=== PATIENT | female | born 1995 | race Caucasian/White ===

== ENCOUNTER 2021-04-16 09:49 | Emergency (ER) | payer OTHER, SELFPAY ==
[2021-04-16 10:00] VITALS: BP 137/83; PULSE 75; RESP 19; TEMP 36.6; O2SAT 97; BMI 20.2
--- NOTE | 2021-04-16 10:29 | ECG_ITS ---
Test Reason : chest pain Blood Pressure : / mmHG Vent. Rate : 064 BPM Atrial Rate : 064 BPM P-R Int : 136 ms QRS Dur : 080 ms QT Int : 380 ms P-R-T Axes : 072 075 067 degrees QTc Int : 392 ms Normal sinus rhythm Normal ECG No previous ECGs available Referred By: Marco Candelario Electronically Signed By:Otto Patterson
--- NOTE | 2021-04-16 10:42 | ED.GENADULT ---
HPI - General Adult General Chief complaint: General Medical Stated complaint: chest pain Time Seen by Provider: 04/16/21 10:28 Source: patient Mode of arrival: ambulatory Limitations: no limitations History of Present Illness HPI narrative: This is a 25-year-old female past medical history significant for anxiety presents to the emergency department with complaints of right shoulder pain and anterior chest wall pain x2 days. Patient tells me that she has been feeling intermittent pain to her right shoulder, and her anterior chest. She tells me that the chest pain is at times on the left side and other times on the right side. Pain is worse with movement better at rest. She tells me that this has never happened to her before. He tells me she does not think that the right shoulder pain and the chest pain are related, she thinks that they are separate things. Right shoulder pain is worse with movement better at rest also She tells me that she received her COVID shot 1 week ago, and she noted that she had lymph nodes underneath her armpits, and she might have felt 1 in her neck. He tells me she is very anxious and nervous. She has no family history of cardiac disease, no personal history of cardiac disease. She is vaccinated against COVID. No recent URI. Onset (ago): day(s) (2) Location: chest (anterior chest wall ) and right (shoulder ) Radiation: non-radiation Severity: moderate Quality: other (tightness ) Pain Consistency: intermittent Relieving factors: none Exacerbating factors: none Associated symptoms: denies other symptoms Treatments prior to arrival: none Related Data Allergies Allergy/AdvReac Type Severity Reaction Status Date / Time No Known Allergies Allergy Unverified 01/03/20 16:45 [No Known Allergies*] Review of Systems Review of Systems: Constitutional : No Weight loss, No Fever, No Chills, No Fatigue, No Malaise ENT/Mouth : No sore throat, No Rhinorrhea Eyes: No Eye Pain, No Swelling, No Redness Cardiovascular : + Chest Pain, No SOB, No Dyspnea on Exertion, No Orthopnea, No Edema, No Palpitations Respiratory : No Cough, No Sputum, No Wheezing Gastrointestinal : No Nausea, No Vomiting, No Diarrhea, No Constipation, No abdominal Pain, No Hematochezia, No Melena Genitourinary : No Dysuria, No Urinary Frequency, No Hematuria, Musculoskeletal : + joint pain, No Myalgias, No Joint Swelling Skin : No Skin Lesions, No rash Neuro : No Weakness, No Numbness, No Dizziness, No Headache Psych : No Anxiety/Panic, No Depression All other systems reviewed and are negative Yes all other systems are reviewed and are negative [facility] Past Medical History Attestation statement: The following information was validated with the patient. Source: old records reviewed and nursing notes reviewed Social History Social History Advance Directives: No Advance Directives Information Provided: No Patient : No Physical Exam Vital Signs: Vital Signs: Last Vital Signs Temp 98 F 04/16/21 10:00 Pulse 75 04/16/21 10:00 Resp 19 04/16/21 10:00 BP 137/83 04/16/21 10:00 Pulse Ox 97 04/16/21 10:00 BMI result Body Mass Index 20.2 VSS Appearance: Alert.? Oriented X3.? No acute distress.? Patient is extremely anxious, and tearful. Head: Normocephalic, atraumatic, no step-offs or deformities Eyes: Pupils equal, round and reactive to light.? ENT: Pharynx normal.? Neck: Normal inspection.? Neck supple.? CVS: Normal heart rate and rhythm.? Pulses normal.?+ Discomfort with palpation of anterior chest wall, she tells me she feels a soreness/ pain Respiratory: No respiratory distress.? Breath sounds normal.? Abdomen: Soft and nontender.? Skin: Skin warm and dry.? Normal skin color.? Normal skin turgor.? Extremities: No lower extremity edema.? No calf ttp. 5/5 strength to bilateral upper and lower extremities Back: No midline tenderness, no C-spine tenderness, full range of motion, no CVA tenderness bilaterally Neuro: Oriented X 3.? No motor deficit.? No sensory deficit. Course Reevaluation(s) Reevaluation #1: No acute findings on laboratory studies. Negative troponin. EKG with no ischemic changes. Patient is better after Ativan. I suspect that this is anxiety, I do not suspect this is cardiac in origin. I have given patient strict return precautions and have advised her to return with new or worsening symptoms. Comfortable with discharge home Time: 12:10 Medical Decision Making [facility] Narrative Medical decision making narrative: 1045 25 yo F pmhx anxiety presents to the ED w/ complaints of r. shoulder pain and anterior chest wall pain x2 days. Reports getting a COVID shot about a week ago. She denies fevers, chills, nausea, vomiting, shortness of breath. Upon physical examination patient reports pain/ discomfort with palpation of anterior chest wall. Regular rate and rhythm. Lungs are clear. Abdomen soft nontender nondistended. No focal neuro deficits. No calf tenderness upon palpation. 5/5 strength upper and lower extremities. I was unable to palpate any lymphadenopathy no axillary, cervical, occipital pre and postauricular adenopathy. Throughout exam patient is very anxious and tearful. Patient's history and physical examination consistent with anxiety and costochondritis. Unlikely that this is PE or ACS. Patient's PERC score 0- low suspision for PE nor SOB, tachypnea, tachycardia, Or hypoxia. I will obtain basic labs, EKG and troponin. Lab Data Result diagrams: 04/16/21 11:21 04/16/21 11:21 Labs: Lab Results 04/16/21 04/16/21 04/16/21 Range/Units 11:19 11:21 11:21 WBC 9.4 (4.8-10.8) X10*3/uL RBC 4.15 L (4.20-5.50) X10*6/uL Hgb 13.4 (12.0-16.0) g/dl Hct 40.0 (37.0-47.0) % MCV 96.4 (80.0-98.0) fL MCH 32.3 (27.0-33.0) pg MCHC 33.5 (31.0-35.0) g/dl RDW 11.9 (11.0-16.0) % Plt Count 326 (160-400) X10*3/uL MPV 9.1 L (9.4-12.3) fL Immature Gran % (Auto) 0.2 (0.0-0.4) % Neut % (Auto) 81.1 H (45-73) % Lymph % (Auto) 13.4 L (20-40) % [place] % (Auto) 5.0 (2-11) % Eos % (Auto) 0.1 (0-4) % Baso % (Auto) 0.2 (0-2) % Lymph # (Auto) 1.3 (1.2-4.9) X10*3/uL [place] # (Auto) 0.5 (0.1-1.2) X10*3/uL Eos # (Auto) 0.0 (0.0-0.4) X10*3/uL Baso # (Auto) 0.0 (0.0-0.2) X10*3/uL Abs Immat Gran (auto) 0.02 (0.00-0.03) X10*3/uL Absolute Neuts (auto) 7.6 (2.0-8.3) x10*3/uL Absolute Nucleated RBC 0.000 (0.0-0.012) X10*3/uL Nucleated RBC % (auto) 0.0 (0.0-0.2) /100WBC Sodium 139 (135-145) mmol/L Potassium 4.2 (3.3-5.1) mmol/L Chloride 108 (96-108) mmol/L Carbon Dioxide 24 (22-29) mmol/L Anion Gap 11 L (12-20) BUN 8 L (9-16) mg/dL Creatinine 0.79 (0.5-1.4) mg/dL Estim Creat Clear Calc 72.9 Estimated GFR > 60 Random Glucose 107 (60-115) mg/dL Calcium 9.7 (8.4-10.2) mg/dL Total Bilirubin 0.7 (0.0-1.0) mg/dL AST 17 (5-31) U/L ALT 13 (0-31) U/L Alkaline Phosphatase 48 (39-117) U/L Troponin I High Sens (<3.5-17.0) ng/L Total Protein 7.2 (6.5-8.0) g/dL Albumin 4.6 (3.5-5.0) g/dL COVID-19 ([place]) Negative (Negative) COVID-19 Clin Com See Note 04/16/21 Range/Units 11:21 WBC (4.8-10.8) X10*3/uL RBC (4.20-5.50) X10*6/uL Hgb (12.0-16.0) g/dl Hct (37.0-47.0) % MCV (80.0-98.0) fL MCH (27.0-33.0) pg MCHC (31.0-35.0) g/dl RDW (11.0-16.0) % Plt Count (160-400) X10*3/uL MPV (9.4-12.3) fL Immature Gran % (Auto) (0.0-0.4) % Neut % (Auto) (45-73) % Lymph % (Auto) (20-40) % [place] % (Auto) (2-11) % Eos % (Auto) (0-4) % Baso % (Auto) (0-2) % Lymph # (Auto) (1.2-4.9) X10*3/uL [place] # (Auto) (0.1-1.2) X10*3/uL Eos # (Auto) (0.0-0.4) X10*3/uL Baso # (Auto) (0.0-0.2) X10*3/uL Abs Immat Gran (auto) (0.00-0.03) X10*3/uL Absolute Neuts (auto) (2.0-8.3) x10*3/uL Absolute Nucleated RBC (0.0-0.012) X10*3/uL Nucleated RBC % (auto) (0.0-0.2) /100WBC Sodium (135-145) mmol/L Potassium (3.3-5.1) mmol/L Chloride (96-108) mmol/L Carbon Dioxide (22-29) mmol/L Anion Gap (12-20) BUN (9-16) mg/dL Creatinine (0.5-1.4) mg/dL Estim Creat Clear Calc Estimated GFR Random Glucose (60-115) mg/dL Calcium (8.4-10.2) mg/dL Total Bilirubin (0.0-1.0) mg/dL AST (5-31) U/L ALT (0-31) U/L Alkaline Phosphatase (39-117) U/L Troponin I High Sens < 3.5 (<3.5-17.0) ng/L Total Protein (6.5-8.0) g/dL Albumin (3.5-5.0) g/dL COVID-19 ([place]) (Negative) COVID-19 Clin Com ECG Data Attestation: I personally reviewed and interpreted this ECG as follows: Prior ECG tracings: not available for review Interpretation: Ventricular rate of 64, [place] normal, QRS normal, QT / QTC normal. EKG shows normal sinus rhythm, no ST elevations or inversions. No acute ischemia. No previous to compare with. Critical Care Time Critical Care Time Critical Care Time: No Discharge Plan Discharge Clinical Impression: Costochondritis, Anxiety Patient Disposition: Home, Self-Care Instructions: Costochondritis (ED), Anxiety (ED) Additional Instructions: Take your medications as prescribed. If you were prescribed antibiotics today, it is important that you take your medication to their entirety, do not skip any doses, do not finish them early. Follow-up with your primary care provider this week. Return to the emergency department with new or worsening symptoms. In case of emergency call 911 Referrals: Kristen Mora MD [Primary Care Provider] - 2 days Stand Alone Forms: Work/School Release
[2021-04-16] MEDS: LORazepam 0.5 MG TABLET PO (10:58)
--- NOTE | 2021-04-16 10:59 | PC.NURSE ---
Refusing to have labs drawn until anti-anxiety medications kick in . Just medicated with Ativan PO. Will re-attempt lab draw shortly. Pt is otherwise cooperative and agrees to care plan. Pt states I know I'm gonna pass out. It's me, not you guys. I'm just anxious . MD aware.
[2021-04-16 11:27] LABS: MANUAL DIFF FLAG NO
[2021-04-16 11:28] LABS: Basophils Percent Auto 0.2 % (0-2); Eosinophils Percent Auto 0.1 % (0-4); Hemoglobin 13.4 g/dl (12.0-16.0); Imm Gran Abs Auto 0.02 X10*3/uL (0.00-0.03); Imm Gran Pct Auto 0.2 % (0.0-0.4); Lymphocytes Absolute Auto 1.3 X10*3/uL (1.2-4.9); Lymphocytes Percent Auto 13.4 % (20-40); Mean Corpuscular HGB Conc 33.5 g/dl (31.0-35.0); Mean Corpuscular Hemoglobin 32.3 pg (27.0-33.0); Mean Corpuscular Volume 96.4 fL (80.0-98.0); Mean Platelet Volume 9.1 fL (9.4-12.3); Monocytes Absolute Auto 0.5 X10*3/uL (0.1-1.2); Neutrophils Absolute Auto 7.6 x10*3/uL (2.0-8.3); Neutrophils Percent Auto 81.1 % (45-73); Platelet Count 326 X10*3/uL (160-400); Red Blood Count 4.15 X10*6/uL (4.20-5.50); Red Cell Distribution Width 11.9 % (11.0-16.0); White Blood Count 9.4 X10*3/uL (4.8-10.8)
[2021-04-16 11:42] LABS: Alanine Aminotransferase 13 U/L (0-31); Albumin Level 4.6 g/dL (3.5-5.0); Alkaline Phosphatase 48 U/L (39-117); Anion Gap 11 (12-20); Aspartate Amino Transferase 17 U/L (5-31); Bilirubin Total 0.7 mg/dL (0.0-1.0); Blood Urea Nitrogen 8 mg/dL (9-16); Calcium 9.7 mg/dL (8.4-10.2); Carbon Dioxide 24 mmol/L (22-29); Chloride 108 mmol/L (96-108); Creatinine Clr Calc Pharmacy 72.9; Estimated Glomerular Filt Rate > 60; Glucose Random 107 mg/dL (60-115); Potassium 4.2 mmol/L (3.3-5.1); Sodium 139 mmol/L (135-145); Total Protein 7.2 g/dL (6.5-8.0)
[2021-04-16 11:44] LABS: COVID-19 Test Negative (Negative)
[2021-04-16 11:48] LABS: Troponin-I High Sensitivity < 3.5 ng/L (<3.5-17.0)
== END 2021-04-16 12:46 | disposition home or self-care (01) ==
PROVIDERS: Physician Assistant; Emergency Provider Emergency Medicine; PCP Family Medicine
DX: M94.0 Chondrocostal junction syndrome [Tietze] (principal); R07.9 Chest pain, unspecified; F41.1 Generalized anxiety disorder; F43.0 Acute stress reaction; Z20.822 Contact with and (suspected) exposure to COVID-19; Z79.899 Other long term (current) drug therapy
CPT/HCPCS: 36415; 80053; 84484; 85025; 87635; 93005; 99283; 99284

== ENCOUNTER 2024-03-14 13:20 | Emergency (ER) | payer MEDICAID, SELFPAY ==
[2024-03-14 13:40] VITALS: BP 118/89; PULSE 123; RESP 16; TEMP 36.8; O2SAT 97; BMI 19.4
--- NOTE | 2024-03-14 13:40 | ED_ITS ---
HPI - General Adult General Chief complaint: GI Bleed Stated complaint: blood in stools Time Seen by Provider: 03/14/24 18:38 Source: patient, RN notes reviewed and old records reviewed Mode of arrival: ambulatory Limitations: no limitations History of Present Illness ED Provider: ERIN CASTAÑEDA PA-C HPI narrative: 28 year old female with pmhx significant for ulcerative colitis (on mesalamine suppositories) and internal hemorrhoids presents to the ED today for evaluation of one episode of blood streaks in her stool this morning. Admits to history of internal hemorrhoids with painless bleeding. Reports this feels similar. also endorses some epigastric abdominal discomfort yesterday which has since resolved. reports that felt more like her acid reflux. denies any other abdominal pain. denies N/V/D, no contipation/ straining, flank pain, dysuria, hematuria. Denies recent peptobismol use or iron supplementation. Denies fatigue, chest pain, sob. Patient also endorses recent increased stressors at home. States she was very anxious. She has Ativan at home to take on a p.r.n. basis. She did not take any today. She is extremely anxious about this situation and about the possibility of staying in the hospital. Denies etoh consumption. Denies SI/HI. Related Data Previous Rx's ?Medication ?Instructions ?Recorded hydrocortisone acetate 25 mg 25 mg WV BID PRN hemorrhoids #12 ea 03/14/24 rectal suppository (Anusol-HC) lorazepam 1 mg tablet (Ativan) 1 mg PO BID PRN anxiety #7 tabs 03/14/24 Allergies Allergy/AdvReac Type Severity Reaction Status Date / Time No Known Allergies Allergy Verified 03/14/24 13:42 [No Known Allergies*] Review of Systems 2 Review of Systems: Constitutional: No fever, chills, fatigue, night sweats, weight changes ENT/Mouth: No ear pain, hearing loss, nasal congestion, sinus pain, rhinorrhea, sore throat Eyes: No eye pain, swelling, redness, vision changes, discharge Cardio: No chest pain, palpitations, VARGAS, orthopnea, peripheral edema Pulm: No SOB, cough, sputum, wheezing, dyspnea, hemoptysis GI: No nausea, vomiting, hematemesis, abdominal pain, diarrhea, constipation, + hematochezia : No irregular bleeding, dysuria, frequency, urgency, hesitancy, hematuria, flank pain, urinary flow changes, urinary incontinence or retention MSK: No back pain, neck pain, joint pain, myalgias Skin: No lesions, rashes Neuro: No weakness, numbness, paresthesias, LOC, dizziness, headache Psych: No anxiety/panic, depression, SI/HI, AH/VH All other systems reviewed and are negative. [facility] Past Medical History Attestation statement: The following information was validated with the patient. Source: old records reviewed and nursing notes reviewed Social History Social History Advance Directives: No Advance Directives Information Provided: No Physical Exam ED Vital Signs: Vital Signs - 24 hr 03/14/24 13:40 03/14/24 18:00 Temperature 98.2 F 98.5 F Pulse Rate 123 H 92 Respiratory Rate 16 18 Blood Pressure 118/89 133/94 H Pulse Oximetry 97 99 Oxygen Delivery Method Room Air Room Air BMI result Body Mass Index 19.4 tachycardic, vitals otherwise wnl General: Well appearing, in no acute distress. Skin: Warm, dry, intact. No rashes or lesions. no pallor. Head: Normocephalic, atraumatic. EENT: Hearing is intact b/l. Conjunctiva clear. PERRLA. EOM intact. Moist mucous membranes.? Cardiac: Chest wall symmetric. RRR Lungs: Normal respiratory effort without accessory muscle use. CTA bilaterally. Abdomen: Soft, non-tender, non-distended. No rebound tenderness or guarding. Positive BS x4. Rectal exam performed with Olive RUSS present in room to drop wire builder. Normal rectal sphincter tone. No external masses or lesions. Single palpable internal hemorrhoid. no active bleeding. No palpable stool in the rectal vault. Guac negative. Back: No midline spinous or paraspinal tenderness. No step off deformity. Neuro: AOx3. Normal speech. Ambulating with steady gait. Psych: Appropriate mood and affect. Responds appropriately to questions. Course Course Course Narrative: This is a Rapid Medical Exam performed in triage by Shelly Hawk PA-C. Full HPI, ROS and PE to be performed by primary ED provider. 28yo F w/PMHx Ulcerative Colitis on Mesalamine suppositories presenting to the ED c/o dark blood mixed in stool x today. Admits to abdominal discomfort yesterday. Admits tin increasing home stressors. denies N/V/D PE: nontoxic appearing, tachycardic, anxious Plan: labs, occult stool Reevaluation(s) Reevaluation #1: 1900 -- CBC with slight leukocytosis to 11.7, no left shift. No anemia. H&H stable. Chemistry without acute electrolyte abnormality requiring intervention. No JAMAR. Normal liver function. Lipase WNL. Urine is negative for infection. > OBS pending. exam concerning for internal hemorrhoid, GI bleed less likely. PO. Ativan given for anxiety. denying any pain at present. 2005 -- OBS negative. Exam is not concerning for acute GI bleed. She has had no further episodes of blood in her stool. On my digital rectal exam, there is no active bleeding. Concern for internal hemorrhoid. Will send her home with Anusol suppository to use as needed for bleeding. Advised to follow up with her primary care provider. Will also provide her with a referral to a GI doctor for follow-up. Given her continued anxiety throughout ED stay, will send her home with Ativan to take on a p.r.n. basis for anxiety. Patient has remained stable throughout ED visit today. Discussed worrisome signs and symptoms and when to return to the ED. All questions answered at this time. Patient is agreeable with disposition and stable for discharge. Medications Administered Discontinued Medications Generic Name Dose Route Start Last Admin Trade Name Freq PRN Reason Stop Dose Admin Lorazepam 0.5 mg 03/14/24 18:52 03/14/24 18:57 Lorazepam 0.5 Mg Tablet PO 03/14/24 18:53 0.5 mg ONCE ONE Administration Medical Decision Making Medical Decision Making MDM Narrative: 28 year old female with pmhx significant for ulcerative colitis (on mesalamine suppositories) and internal hemorrhoids presents to the ED today for evaluation of one episode of blood streaks in her stool this morning. Patient is tachycardic to 123. Vital signs otherwise WNL. On exam, she was visibly anxious, tearful. Her abdomen is soft, nondistended, nontender to palpation without rebound tenderness or guarding. On rectal exam normal rectal sphincter tone. No external masses or lesions. Single palpable internal hemorrhoid. no active bleeding. No palpable stool in the rectal vault. Guac negative. Differential diagnosis includes anemia, electrolyte abnormality, anxiety, ulcerative colitis flare, diverticulosis, diverticulitis, GI bleed, hemorrhoids Plan for basic labs, UA, urien , OBS, re-evaluation. PO ativan for anxiety Differential Diagnosis Differential Diagnoses: The differential diagnosis associated with the presentation includes as above. Admission/Observation Not indicated. Lab Data MDM Lab Attestation statement: I reviewed the patient's lab results. as above. 03/14/24 14:20 03/14/24 14:20 Labs: Lab Results 03/14/24 03/14/24 Range/Units 14:20 19:36 WBC 11.7 H (4.8-10.8) X10*3/uL RBC 4.16 L (4.20-5.50) X10*6/uL Hgb 13.7 (12.0-16.0) g/dl Hct 39.9 (37.0-47.0) % MCV 95.9 (80.0-98.0) fL MCH 32.9 (27.0-33.0) pg MCHC 34.3 (31.0-35.0) g/dl RDW 11.9 (11.0-16.0) % Plt Count 299 (160-400) X10*3/uL MPV 9.7 (9.4-12.3) fL Immature Gran % (Auto) 0.3 (0.0-0.4) % Neut % (Auto) 77.4 H (45-73) % Lymph % (Auto) 15.8 L (20-40) % [place] % (Auto) 6.2 (2-11) % Eos % (Auto) 0.0 (0-4) % Baso % (Auto) 0.3 (0-2) % Lymph # (Auto) 1.9 (1.2-4.9) X10*3/uL [place] # (Auto) 0.7 (0.1-1.2) X10*3/uL Eos # (Auto) 0.0 (0.0-0.4) X10*3/uL Baso # (Auto) 0.0 (0.0-0.2) X10*3/uL Abs Immat Gran (auto) 0.03 (0.00-0.03) X10*3/uL Absolute Neuts (auto) 9.1 H (2.0-8.3) x10*3/uL Absolute Nucleated RBC 0.000 (0.0-0.012) X10*3/uL Nucleated RBC % (auto) 0.0 (0.0-0.2) /100WBC PT 12.4 (10.9-12.4) SEC INR 1.1 (0.9-1.1) Sodium 141 (135-145) mmol/L Potassium 3.5 (3.3-5.1) mmol/L Chloride 108 (96-108) mmol/L Carbon Dioxide 21 L (22-29) mmol/L Anion Gap 16 (12-20) BUN 8 L (9-16) mg/dL Creatinine 0.78 (0.5-1.4) mg/dL Estim Creat Clear Calc 71.9 Estimated GFR > 60 Random Glucose 97 (60-115) mg/dL Calcium 10.1 (8.4-10.2) mg/dL Magnesium 2.0 (1.6-2.6) mg/dL Total Bilirubin 0.7 (0.0-1.0) mg/dL Direct Bilirubin 0.2 (0.0-0.5) mg/dL AST 20 (5-31) U/L ALT 13 (0-31) U/L Alkaline Phosphatase 52 (39-117) U/L Total Protein 7.5 (6.5-8.0) g/dL Albumin 4.8 (3.5-5.0) g/dL Lipase 27 (8-78) U/L Urine Color Yellow Urine Appearance Cloudy Urine pH 5.0 (5.0-9.0) Ur Specific [place] 1.010 (1.005-1.025) Urine Protein Negative (Neg-Trace) mg/dL Urine Glucose (UA) Negative (Negative) mg/dL Urine Ketones 15 (Negative) mg/dL Urine Blood Small (1+) H (Negative) Urine Nitrite Negative (Negative) Ur Leukocyte Esterase Small (1+) H (Negative) Urine RBC 0-2 (0-2) /HPF Urine WBC 6-10 H (0-5) /HPF Ur Squamous Epith Cells 11-20 (0-2) /HPF Urine Bacteria Trace (None Seen) Hyaline Casts 0-2 (0-2) /LPF Urine Test NEGATIVE (NEGATIVE) Stool Occult Blood NEGATIVE (NEGATIVE) Independent Historian Clinical information obtained from an independent historian. History obtained from or confirmed by: Other (boyfriend) External Record Review External record reviewed: Inpatient record Chronic Conditions Patient?s care impacted by: Other (anxiety, ulcerative colitis ) Social Determinants Patient?s care significantly limited by Social Determinants of Health including: Other Social Determinant of Health Critical Care Time Critical Care Time Critical Care Time: No Discharge Plan Discharge Clinical Impression: Internal hemorrhage Patient Disposition: Home, Self-Care Instructions: Hemorrhoids (ED), Rectal Bleeding (ED) Additional Instructions: You were evaluated in the ED today for rectal bleeding. Your blood work is reassuring. Your urine is negative for infection and . We sent a sample of your stool to the lab and it was negative for blood. Your physical exam is consistent with an internal hemorrhoid. No active bleeding. If the area begins to bleed again, I have sent an anusol suppository that you can use twice a day. Please follow up with your PCP. I have also provided you with a referral to a PCP and a gastrointestinal doctor. You may call them to establish care. Regarding your anxiety, I have sent ativan to your pharmacy for you to take on an as needed basis. Please return to the ED with any new or worsening symptoms. In the case of an emergency call 911. Prescriptions: New hydrocortisone acetate [Anusol-HC] 25 mg suppository 25 mg WV BID PRN (Reason: hemorrhoids) Qty: 12 0RF lorazepam [Ativan] 1 mg tablet 1 mg PO BID PRN (Reason: anxiety) Qty: 7 0RF Referrals: [facility] [place] Gastroenterology Services [Provider Group] [facility] [place] Family Medicine [Provider Group] [facility] [place] Primary CareKateryna [Provider Group] [facility] [place] Primary CareGarrett [Provider Group] Print Language: [place]
[2024-03-14 14:26] LABS: Appearance Urine Cloudy; Color Urine Yellow; Glucose Urine UA Negative (Negative); Leukocyte Esterase Urine Small (1+) (Negative); MANUAL DIFF FLAG NO; Nitrite Urine Negative (Negative); UMIC TRIGGER UACC YES; Urine Blood Small (1+) (Negative); Urine Ketones 15 mg/dL (Negative); Urine Protein Negative (Neg-Trace)
[2024-03-14 14:28] LABS: Basophils Percent Auto 0.3 % (0-2); Hematocrit 39.9 % (37.0-47.0); Hemoglobin 13.7 g/dl (12.0-16.0); Imm Gran Abs Auto 0.03 X10*3/uL (0.00-0.03); Imm Gran Pct Auto 0.3 % (0.0-0.4); Lymphocytes Absolute Auto 1.9 X10*3/uL (1.2-4.9); Lymphocytes Percent Auto 15.8 % (20-40); Mean Corpuscular HGB Conc 34.3 g/dl (31.0-35.0); Mean Corpuscular Hemoglobin 32.9 pg (27.0-33.0); Mean Corpuscular Volume 95.9 fL (80.0-98.0); Mean Platelet Volume 9.7 fL (9.4-12.3); Monocytes Absolute Auto 0.7 X10*3/uL (0.1-1.2); Monocytes Percent Auto 6.2 % (2-11); Neutrophils Absolute Auto 9.1 x10*3/uL (2.0-8.3); Neutrophils Percent Auto 77.4 % (45-73); Platelet Count 299 X10*3/uL (160-400); Red Blood Count 4.16 X10*6/uL (4.20-5.50); Red Cell Distribution Width 11.9 % (11.0-16.0); White Blood Count 11.7 X10*3/uL (4.8-10.8)
[2024-03-14 14:35] LABS: INTERNATIONAL NORM RATIO 1.1 (0.9-1.1); Prothrombin Time 12.4 SEC (10.9-12.4)
[2024-03-14 14:42] LABS: Alanine Aminotransferase 13 U/L (0-31); Albumin Level 4.8 g/dL (3.5-5.0); Alkaline Phosphatase 52 U/L (39-117); Anion Gap 16 (12-20); Aspartate Amino Transferase 20 U/L (5-31); Bilirubin Direct 0.2 mg/dL (0.0-0.5); Bilirubin Total 0.7 mg/dL (0.0-1.0); Blood Urea Nitrogen 8 mg/dL (9-16); Calcium 10.1 mg/dL (8.4-10.2); Carbon Dioxide 21 mmol/L (22-29); Chloride 108 mmol/L (96-108); Creatinine Clr Calc Pharmacy 71.9; Estimated Glomerular Filt Rate > 60; Glucose Random 97 mg/dL (60-115); Lipase 27 U/L (8-78); Potassium 3.5 mmol/L (3.3-5.1); Sodium 141 mmol/L (135-145); Total Protein 7.5 g/dL (6.5-8.0)
[2024-03-14 15:48] LABS: Bacteria Urine Trace (None Seen); Hyaline Casts Urine 0-2 /LPF (0-2); UACC Culture Trigger YES
[2024-03-14 15:49] LABS: RBC Urine 0-2 /HPF (0-2)
[2024-03-14 18:00] VITALS: BP 133/94; PULSE 92; RESP 18; TEMP 36.9; O2SAT 99
[2024-03-14] MEDS: LORazepam 0.5 MG TABLET PO (18:57)
[2024-03-14 19:12] LABS: UPreg QC Valid YES; Urine Pregnancy NEGATIVE (NEGATIVE)
[2024-03-14 19:40] LABS: OBS Int Ctl Valid YES; OBS1 NEGATIVE (NEGATIVE)
[2024-03-14 20:11] VITALS: BP 130/85; PULSE 90; RESP 20; TEMP 36.9; O2SAT 96
== END 2024-03-14 20:11 | disposition home or self-care (01) ==
PROVIDERS: Physician Assistant; Physician Assistant Medical; Emergency Provider Emergency Medicine
DX: R58 Hemorrhage, not elsewhere classified (principal); K64.8 Other hemorrhoids; F41.9 Anxiety disorder, unspecified; R00.0 Tachycardia, unspecified
CPT/HCPCS: 36415; 80048; 80076; 81001; 81025; 82272; 83690; 83735; 85025; 85610; 87086; 99283; 99284